=== PATIENT | female | born 1970 | race Two or more races ===

== ENCOUNTER 2019-04-15 19:49 | Emergency (ER) | payer OTHER ==
[~2019-04-15] VITALS: Ht 154.9 cm; Wt 134.3 kg
[~2019-04-15 19:49] MED LIST: VIC GT; antacid; motrin
[2019-04-15 20:00] VITALS: BP 142/86
--- NOTE | 2019-04-15 20:06 | NUR ---
PT AMBULATED TO WITH STEADY GAIT. URINE CUP PROVIDED. AWAITING AVAILABLE BED.
--- NOTE | 2019-04-15 20:23 | NUR ---
PT AMBULATED TO BED 11 WITH STEADY GAIT.
--- NOTE | 2019-04-15 20:30 | NUR ---
48/ F PRESENTED TO ED WITH C/O URINARY FREQUENCY , URGENCY AND DISCOMFORT X 3 DAYS. FEVER/CHILLS SINCE YESTERDAY. STATES TO HAVE TAKEN TYLENOL AT 1500. DENIES PAST MED HX. DENIES RX. DENIES ALLERGIES. WILL CONTINUE TO MONITOR.
[2019-04-15] MEDS ORDERED: IBUPROFEN 600 MG TAB PO ONE (20:45)
[2019-04-15] MEDS ORDERED: NITROFURANTOIN 100 MG CAP PO ONE (21:05)
[2019-04-15 21:17] VITALS: BP 142/86
--- NOTE | 2019-04-15 21:17 | NUR ---
Patient discharged with v/s stable. TEMP DECREASED, CURRENT TEMP 100.3. Written and verbal after care instructions given and explained. Patient alert, oriented and verbalized understanding of instructions. Ambulatory with steady gait. All questions addressed prior to discharge. ID band removed. Patient advised to follow up with PMD. Rx of MACROBID, IBUPROFEN given. Patient educated on indication of medication including possible reaction and side effects. Opportunity to ask questions provided and answered.
== END 2019-04-15 21:17 | disposition home or self-care (01) ==
LOC: MED 19:49
DX: N39.0 Urinary tract infection, site not specified (principal); Z79.891 Long term (current) use of opiate analgesic; Z79.899 Other long term (current) drug therapy
CPT/HCPCS: 81002; 81025; 99283

== ENCOUNTER 2020-06-29 14:13 | Emergency (ER) | payer OTHER ==
[~2020-06-29] VITALS: Ht 154.9 cm; Wt 136.1 kg
[2020-06-29 14:47] VITALS: BP 113/64
--- NOTE | 2020-06-29 15:08 | NUR ---
49 YEAR OLD FEMALE COMPLAINS OF PAIN BELOW RIGHT KNEE X 2 DAYS. PT DENIES TRAUMA. PT STATES SHE IS UNABLE TO AMBULATE ON THAT LEG. PT AOX4, BREATHING EVEN AND UNLABORED, SKIN WARM AND DRY. BED IN LOWEST POSITION, LOCKED, BED RAIL UPX1. PMH - DENIES ALLERGIES - NKA
[2020-06-29] MEDS ORDERED: KETOROLAC 30 MG/ML VIAL IM ONE (15:10)
[2020-06-29 16:10] VITALS: BP 117/82
--- NOTE | 2020-06-29 16:10 | NUR ---
Patient discharged with v/s stable. Written and verbal after care instructions about knee sprain given and explained. Patient alert, oriented and verbalized understanding of instructions. Ambulatory with steady gait. All questions addressed prior to discharge. ID band removed. Patient advised to follow up with PMD. Rx of ibuprofen given. Patient educated on indication of medication including possible reaction and side effects. Opportunity to ask questions provided and answered.
== END 2020-06-29 16:10 | disposition home or self-care (01) ==
LOC: MED 14:13
DX: S86.811A Strain of other muscle(s) and tendon(s) at lower leg level, right leg, initial encounter (principal); E66.9 Obesity, unspecified; Z68.43 Body mass index [BMI] 50.0-59.9, adult; Z79.899 Other long term (current) drug therapy; X58.XXXA Exposure to other specified factors, initial encounter; Y93.89 Activity, other specified; Y92.89 Other specified places as the place of occurrence of the external cause; Y99.8 Other external cause status
CPT/HCPCS: 73560; 96372; 99283; J1885